=== PATIENT | male | born 1955 | race Caucasian/White ===

== ENCOUNTER 2024-01-05 18:55 | Emergency (ER) | payer MEDICARE, OTHER, SELFPAY ==
[2024-01-05 19:02] VITALS: PULSE 93; RESP 16; TEMP 36.5; O2SAT 98; BMI 29.7
--- NOTE | 2024-01-05 19:40 | W.ED.GENADLT ---
HPI - General Adult General: Chief complaint: Dental/Oral Stated complaint: tounge cut bleeding wont stop Time Seen by Provider: 01/05/24 19:33 Source: patient Mode of arrival: ambulatory Limitations: no limitations History of Present Illness: 68-year-old male states that he was eating a BLT sandwich 2 hours ago had a toothpick get it and a toothpick struck him in the tongue he states he is on Eliquis he had bleeding from the puncture site on his tongue since and has not been able to get it stopped. Denies any other injuries. Associated symptoms: Deny chest pain, dyspnea, headache(s), nausea, rash or vomiting Review of Systems Const: Denies: fever(s), chills, body aches or change in appetite ENMT: Denies: throat pain or dental pain Card: Denies: chest pain Resp: Denies: dyspnea GI: Denies: abdominal pain, nausea, vomiting or diarrhea Skin/Breast: Denies: rash Neuro: Denies: headache(s) All/Imm: Denies: urticaria Physical Exam Const: COMMON NORMALS: no acute distress, patient oriented x3 and healthy appearing HENMT: COMMON NORMALS: normocephalic and atraumatic HEAD & SCALP: normocephalic and atraumatic MOUTH IMAGES: 1. Small puncture wound to tongue with slight bleeding Eye: COMMON NORMALS: conjunctivae normal CONJUNCTIVA: Yes conjunctivae normal Neck/C-Spine: COMMON NORMALS: full ROM and supple Chest: COMMONS NORMALS: normal inspection of the chest Resp: COMMON NORMALS: normal respiratory effort Extremity: COMMON NORMALS: normal to inspection and full ROM Neuro: COMMON NORMALS: patient oriented x3, moves all extremities and no focal motor deficits Psych: COMMON NORMALS: mental status grossly normal, Normal thought process present and cooperative THOUGHT PROCESS: Normal thought process present Skin: COMMON NORMALS: no rashes or lesions noted and no wounds GENERAL SKIN EXAM: no rashes or lesions noted Course Vital Signs: Vital signs: Vital Signs Temperature 97.7 F 01/05/24 19:02 Pulse Rate 93 01/05/24 19:02 Respiratory Rate 16 01/05/24 19:02 Pulse Oximetry 98 01/05/24 19:02 Oxygen Delivery Me thod Room Air 01/05/24 19:02 [facility] - General Adult Medical Decision Making Patient presents here with puncture wound to the tongue was bleeding did have him hold pressure with TXA gauze the bleeding is since stopped he stable for discharge at this time does not require any sutures as the laceration is small prior to the puncture wound it is not through and through Medical Records I reviewed the patient's medical records. No radiology studies performed this visit Discharge Plan Discharge Patient Disposition: Home Clinical Impression: Laceration of tongue Condition: Stable Discharge Orders: Discharge ED (Routine); Ordered 01/05/24 Ordered By: Nyla Casiano Discharge Diet: Advance as tolerated Discharge Activity: Resume usual activity Patient Instructions: Laceration Without Closure (ED) Coding Level of Care Code ED Application Design Engineer for Thee Del Toro
[2024-01-05] MEDS: tranexamic acid 1,000 mg/10mL SDV 1000 MG IRRIGATION (20:20)
[2024-01-05] MEDS: lidocaine-epi 1% 20 mL INJ 5 ML INJECTION (20:20)
== END 2024-01-05 20:24 | disposition home or self-care (01) ==
PROVIDERS: Emergency Provider Emergency Medicine
DX: S01.512A Laceration without foreign body of oral cavity, initial encounter (principal); W26.8XXA Contact with other sharp object(s), not elsewhere classified, initial encounter
CPT/HCPCS: 99283